=== PATIENT | male | born 1965 | race Caucasian/White ===

== ENCOUNTER 2021-02-10 12:18 | Outpatient (RCR) | payer MEDICARE, SELFPAY ==
[2021-02-10] MEDS: ACETAMINOPHEN 325 MG TABLET 650 MG PO (12:37)
[2021-02-10] MEDS: FAMOTIDINE 20 MG TABLET PO (12:38)
[2021-02-10] MEDS: diphenhydrAMINE HCl CAP 25 MG CAPSULE PO (12:38)
[2021-02-10 12:51] VITALS: BP 106/56; PULSE 75; RESP 20; O2SAT 98
[2021-02-10 13:52] VITALS: BP 99/55
--- NOTE | 2021-02-11 12:00 | PC.NURSE ---
patient feeling much better
== END 2021-02-10 16:25 ==
LOC: AMCINF 12:18
PROVIDERS: PCP Family Medicine; Referring Provider Family Medicine; Visit Provider Internal Medicine Hematology & Oncology
DX: Z23 Encounter for immunization (principal); U07.1 COVID-19; I10 Essential (primary) hypertension
CPT/HCPCS: A9270; M0245; Q0245

== ENCOUNTER 2021-09-07 09:20 | Outpatient (CLI) | payer MEDICARE, SELFPAY ==
--- NOTE | 2021-09-07 11:00 | NEURO_ITS ---
Impression: # Insulin dependent diabetic complains of pain and numbness in lower extremities. 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 # Needle/EMG exam abnormal with decreased motor unit potentials but no fibrillations; suggestive of chronic denervation. # Clinical correlation recommended. Nerve Conduction Studies Anti Sensory Summary Table Stim Site NR Peak (ms) P-T Amp (?V) Site1 Site2 Delta-P (ms) Dist (cm) Manish (m/s) Left Sup Fibular Anti Sensory (Ant Lat Mall) 14 cm 3.7 5.3 14 cm Ant Lat Mall 3.7 16.0 43 Right Sup Fibular Anti Sensory (Ant Lat Mall) NO RESPONSE 14 cm NR 14 cm Ant Lat Mall 16.0 Left Sural Anti Sensory (Lat Mall) Calf 3.9 11.7 Calf Lat Mall 3.9 16.0 41 Right Sural Anti Sensory (Lat Mall) Calf 4.9 5.8 Calf Lat Mall 4.9 16.0 33 Motor Summary Table Stim Site NR Onset (ms) O-P Amp (mV) Site1 Site2 Delta-0 (ms) Dist (cm) Manish (m/s) Left Peroneal Motor (Vastus Med) Ankle 4.7 0.5 Popit Ankle 10.8 42.0 39 Popit 15.5 0.2 Right Peroneal Motor (Vastus Med) Ankle 4.5 0.2 Popit Ankle 10.7 42.0 39 Popit 15.2 0.1 Left Tibial Motor (Abd Goldman Brev) NO RESPONSE Ankle NR Knee Ankle 0.0 Knee NR Right Tibial Motor (Abd Goldman Brev) NO RESPONSE Ankle NR Knee Ankle 0.0 Knee NR F Wave Studies NR F-Lat (ms) L-R F-Lat (ms) Left Peroneal (Mrkrs) (EDB) 66.43 1.99 Right Peroneal (Mrkrs) (EDB) 64.44 1.99 Left Tibial (Mrkrs) (Abd Hallucis) 66.08 1.64 Right Tibial (Mrkrs) (Abd Hallucis) 64.44 1.64 EMG Side Muscle Nerve Root Ins Act Fibs Amp Dur Recrt Comment Right AntTibialis Dp Br Fibular L4-5 Nml Nml Nml >12ms Reduced Right Gastroc Tibial S1-2 Nml Nml Nml >12ms Reduced Right Fibularis Long Sup Br Fibular L5-S1 Nml Nml Nml >12ms Reduced Right Flex Dig Long Tibial L5-S2 Nml Nml Nml Nml Nml Right Ext Dig Brev Dp Br Fibular L5, S1 Nml Nml Nml >12ms Reduced Left AntTibialis Dp Br Fibular L4-5 Nml Nml Nml >12ms Reduced Left Gastroc Tibial S1-2 Nml Nml Nml >12ms Reduced Left Fibularis Long Sup Br Fibular L5-S1 Nml Nml Nml >12ms Reduced Left Flex Dig Long Tibial L5-S2 Nml Nml Nml Nml Nml Left Ext Dig Brev Dp Br Fibular L5, S1 Nml Nml Nml >12ms Reduced Right QuadratusFem QuadFemoris L4-5, S1 Nml Nml Nml Nml Reduced Left QuadratusFem QuadFemoris L4-5, S1 Nml Nml Nml Nml Reduced MTDD
== END 2021-09-07 09:21 | disposition home or self-care (01) ==
PROVIDERS: PCP Family Medicine; Visit Provider Podiatrist Foot & Ankle Surgery
DX: R20.2 Paresthesia of skin (principal); E11.9 Type 2 diabetes mellitus without complications; Z79.4 Long term (current) use of insulin
CPT/HCPCS: 95886; 95910